=== PATIENT | female | born 1985 | race Caucasian/White ===

== ENCOUNTER 2019-02-12 20:47 | Inpatient (IN) | payer MEDICAID ==
[~2019-02-12] VITALS: Ht 160 cm; Wt 55.9 kg
[2019-02-12 20:50] VITALS: BP_SYST 132
--- NOTE | 2019-02-12 20:50 | NUR ---
Patient to ER bed 8 to gown for evaluation. Side rails up. Report given to Roni FREY.
--- NOTE | 2019-02-12 21:05 | NUR ---
Pt ambulates into ER with c/o abdominal pain. Pt states lower abdomen pain and describes pain as "lots of pressure." Pt states pain is 10/10. Pt states pain started approximately 1 week ago. Pt states urine frequency with no pain during urination. Pt states increased thirst and sleepiness. Pt states "I noticed this bump right here too." Upon assessment, pt presents with nodule in left upper leg. Will continue to monitor.
--- NOTE | 2019-02-12 21:05 | NUR ---
ER Dr. Shabazz at bedside examining patient.
[2019-02-12] MEDS ORDERED: NACL 0.9% 1,000 ML IV ONE ×2 (21:08→23:00)
[2019-02-12] MEDS ORDERED: KETOROLAC TROMETHAMINE 30 MG VIAL IVP ONE (21:15)
--- NOTE | 2019-02-12 21:50 | NUR ---
# 20 gauge angiocath placed to L Forearm. Use of asceptic technique. Opsite placed over site. Blood return noted. Blood for lab drawn from site. Flushed with 10 cc of normal saline. No evidence of infiltration noted. Patient tolerated well.
[2019-02-12 22:00] LABS: BASOPHILS % (AUTO) 0.3 % (0.0-2.0); EOSINOPHILS % (AUTO) 0.5 % (0.0-4.0); HEMATOCRIT 40.5 % (36-48); LYMPHOCYTES # (AUTO) 1.2 K/uL (1.0-5.5); LYMPHOCYTES % (AUTO) 15.7 % (20.5-51.5); MEAN CORPUSCULAR HEMOGLOBIN 28 pg (27-31); MEAN CORPUSCULAR HGB CONC 32 % (32-36); MEAN CORPUSCULAR VOLUME 88 fL (79.0-98.0); MONOCYTES # (AUTO) 0.6 K/uL (0.0-1.0); MONOCYTES % (AUTO) 7.3 % (1.7-9.3); NEUTROPHILS % (AUTO) 76.2 % (40.0-70.0); PLATELET COUNT (AUTO) 238 K/uL (130-430); RED BLOOD CELL COUNT(AUTO) 4.63 MIL/uL (4.2-6.2); RED CELL DISTRIBUTION WIDTH 14.1 % (9.0-15.0); WHITE BLOOD COUNT (AUTO) 7.9 K/uL (4.8-10.8)
[2019-02-12 22:20] LABS: BILIRUBIN,URINE NEGATIVE (NEGATIVE); BLOOD, URINE 1+ (NEGATIVE); CLARITY/URINE CLEAR (CLEAR); GLUCOSE,URINE 3+ (NEGATIVE); KETONES,URINE NEGATIVE (NEGATIVE); LEUKOCYTE ESTERASE ,URINE TRACE (NEGATIVE); NITRITE, URINE NEGATIVE (NEGATIVE); PROTEIN URINE NEGATIVE (NEGATIVE); UROBILINOGEN,URINE 0.2 (0.2-1.0)
[2019-02-12 22:26] LABS: COLOR,URINE STRAW (YELLOW)
[2019-02-12 22:34] LABS: BACTERIA,URINE FEW /HPF (None Seen); WBC,URINE 50-80 /HPF (0-3)
[2019-02-12 22:35] LABS: MUCUS,URINE None Seen /LPF (None Seen)
[2019-02-12 22:38] LABS: BARBITURATE, URINE NEGATIVE (NEG <=200); BENZODIAZEPINE, URINE NEGATIVE (NEG <=150); CANNABINOID, URINE POSITIVE (NEG <=50); COCAINE, URINE NEGATIVE (NEG <=150); METHAMPHETAMINES SCREEN,URINE POSITIVE (NEG <=500); OPIATE, URINE NEGATIVE (NEG <=100); PHENCYCLIDINE SCREEN,URINE NEGATIVE (NEG <=25); UR TRICYCLIC ANTIDEPRESSANTS NEGATIVE (NEG <=300); URINE AMPHETAMINE POSITIVE (NEG <=500); URINE METHADONE NEGATIVE (NEG <=200); URINE OXYCODONE SCREEN NEGATIVE (NEG <=100); URINE PROPOXYPHENE SCREEN NEGATIVE (NEG <=300)
[2019-02-12 22:58] LABS: ANION GAP 13 (5-15); CALCIUM 8.3 mg/dL (8.4-11.0); CREATININE 1.05 mg/dL (0.55-1.30); POTASSIUM 3.6 mmol/L (3.5-5.1); SODIUM SERUM 121 mmol/L (136-145); UREA NITROGEN, BLOOD 7 mg/dL (8-21)
[2019-02-12 22:59] LABS: ALANINE AMINOTRANSFERASE 24 U/L (12-78); ALBUMIN 3.1 g/dL (3.4-4.8); ASPARTATE AMINOTRANSFERASE 12 U/L (10-37); TOTAL BILIRUBIN 0.7 mg/dL (0.0-1.0)
[2019-02-12] MEDS ORDERED: INSULIN REGULAR, HUMAN 10 UNITS/0.1 ML INJ IVP ONE (23:00)
[2019-02-12 23:02] LABS: ACETONE, SERUM NEGATIVE (NEGATIVE)
[2019-02-12 23:03] LABS: CHLORIDE 81 mmol/L (98-107)
[2019-02-12 23:04] LABS: GLUCOSE 969 mg/dL (70-99)
--- NOTE | 2019-02-12 23:12 | NUR ---
Second bolus of normal saline started for pt. Pt tolerated well.
--- NOTE | 2019-02-12 23:30 | NUR ---
Dr. Hubbard here at bedside assessing patient.
[2019-02-12] MEDS ORDERED: INSULIN NPH 100 UNITS/ML 10 ML VIAL SUBCUT SCH (23:45)
[2019-02-13] MEDS ORDERED: NACL 0.9% 1,000 ML IV ONE
[2019-02-13] MEDS ORDERED: ACETAMINOPHEN 325 MG TABLET PO PRN
--- NOTE | 2019-02-13 01:32 | NUR ---
Transfer to Telemetry room 126B via ACLS protocol. Licensed nurse present. IV present no signs or symptoms of infiltration.
--- NOTE | 2019-02-13 01:32 | NUR ---
Patient will be admitted to [facility]. Admitted to Telemetry unit. Will go to room 126B. Belongings list completed. Complete and up to date summary report printed. SBAR report to be given at bedside with opportunity for questions.
--- NOTE | 2019-02-13 01:43 | NUR ---
ADMISSION NOTE Received patient from ER via gurney. Patient admitted with diagnosis of uncontrolled diabetes and methamphetamine abuse. Patient oriented to hospital room, call light, toileting, pain management and safety-teach back done. Patient informed that Fran will be her nurse and that their room number is 126B. Personal belongings checked and Belongings List documented. Call light within reach.
[2019-02-13 01:52] VITALS: BP_SYST 101
[2019-02-13] MEDS: cefTRIAXone 1 GM in D5W 50 ML IV SCH (02:26)
--- NOTE | 2019-02-13 02:26 | NUR ---
ACCUCHECK/IV ANTIBIOTICS/IV FLUIDS BS at 484 at this time, ordered insulin administered. MD to be notified. IVF and IV antibiotics hung at this time. Patient denies pain or discomfort at this time. Skin warm and dry to touch. Snacks provided. All needs met at this time. Call light with patient. Bed alarm on. Will continue to monitor.
[2019-02-13] MEDS: INSULIN LISPRO SLIDING SCALE 100 UNITS/ML VIAL (humaLOG) SUBCUT PRN ×5 (02:27→21:27)
[2019-02-13] MEDS ORDERED: cefTRIAXone 1 GM IVPB PREMIX 50 ML IV ONE (02:30)
[2019-02-13] MEDS: NACL 0.9% 1,000 ML IV SCH ×4 (04:07→11:30)
--- NOTE | 2019-02-13 04:30 | NUR ---
ROUNDS Patient in bed sleeping. No s/s of acute distress noted. Breathing even and unlabored. IVF infusing well. Call light with patient. Bed alarm on. Will continue to monitor.
[2019-02-13 06:20] LABS: ALBUMIN 2.1 g/dL (3.4-4.8); CALCIUM 7.4 mg/dL (8.4-11.0); CREATININE 0.56 mg/dL (0.55-1.30); TOTAL BILIRUBIN 0.2 mg/dL (0.0-1.0)
[2019-02-13] MEDS: INSULIN NPH 100 UNITS/ML 10 ML VIAL SUBCUT SCH ×2 (06:27→17:26)
--- NOTE | 2019-02-13 06:37 | NUR ---
CLOSING NOTES Patient in bed sleeping. No s/s acute distress noted. Breathing is even and unlabored. IVF infusing well. IV site patent, no signs of infiltration or infection noted. Skin warm and dry to touch. Last accucheck BS was 235. All needs met throughout the shift. Fall and safety precautions maintained throughout shift. Will continue to monitor until patient care is endorsed to oncoming dayshift nurse.
[2019-02-13 06:40] LABS: POTASSIUM 2.9 mmol/L (3.5-5.1)
[2019-02-13 06:46] LABS: BASOPHILS % (AUTO) 0.6 % (0.0-2.0); EOSINOPHILS # (AUTO) 0.1 K/uL (0.0-0.4); EOSINOPHILS % (AUTO) 1.6 % (0.0-4.0); HEMATOCRIT 32.5 % (36-48); LYMPHOCYTES # (AUTO) 1.4 K/uL (1.0-5.5); LYMPHOCYTES % (AUTO) 22.4 % (20.5-51.5); MEAN CORPUSCULAR HEMOGLOBIN 28 pg (27-31); MEAN CORPUSCULAR HGB CONC 34 % (32-36); MONOCYTES # (AUTO) 0.5 K/uL (0.0-1.0); MONOCYTES % (AUTO) 8.7 % (1.7-9.3); NEUTROPHILS # (AUTO) 4.2 K/uL (1.8-7.7); NEUTROPHILS % (AUTO) 66.7 % (40.0-70.0); PLATELET COUNT (AUTO) 181 K/uL (130-430); WHITE BLOOD COUNT (AUTO) 6.3 K/uL (4.8-10.8)
[2019-02-13] MEDS ORDERED: KCL 20 mEq in 100 mL (PREMIX) 200 ML IV ONE (07:00)
[2019-02-13] MEDS ORDERED: POTASSIUM CHLORIDE 40 MEQ in NS 250 ML IV ONE (07:15)
[2019-02-13 07:52] LABS: MEAN CORPUSCULAR VOLUME 84 fL (79.0-98.0)
[2019-02-13 08:02] VITALS: BP_SYST 127
--- NOTE | 2019-02-13 08:12 | NUR ---
am rounds: Patient is oriented x4. Still very sleepy. K-rider 40 meq in 250 NS started at 67 cc/hr. Safety precautions in place. Call light within reach.
[2019-02-13] MEDS ORDERED: CIPROFLOXACIN HCL 500 MG TABLET PO SCH (10:00)
--- NOTE | 2019-02-13 11:28 | NUR ---
SS NOTES: VENDING MANAGER was referred by nursing to see patient for DCPA and homelessness. Demographic information verified (PCP: None). VENDING MANAGER met with patient at bedside, stated purpose of visit. Pt was alert and oriented x4 (time, person, place, situation) with good eye contact. Pt is disheveled with normal mood and soft speech. Pt was cooperative during the interview. Pt is a 33 y/o single female who came in via ED due to frequent urination, uncontrolled DM and methamphetamine use. Pt states, "this past week I was urinating frequently" and initially, pt thought it was a urinary infection. Pt states she has always known that she is borderline diabetic, but was surprised to know the high glucose reading. Pt states the last time she visited or seen a physician was in 2011 at [facility]. Pt states she has been homeless for 7-8 years now. Pt is originally from [place] but moved to [facility] 3 years ago. Pt states she moved back to [place] in December 08 and has been staying at a dog park in [place]. Pt states she does not stay at homeless shelters due to "bad things happen there, people getting raped". Pt is independent with her ADL's and does not require any DME and does not own a glucometer. Pt states she has no source of income, gets food from food pantries and only receives emotional support from boyfriend. Pt states she is estranged from her family, including her 3 children. Pt states her oldest child lives with the father, and her two underage children lives with their grandfather (patient's father) who adopted them. Pt states she has not seen them for more than 7 years. Pt states she was involved with CPS after her admission at [facility] for attempted suicide via OD. Pt states she was diagnosed in 2012 with Schizophrenia, Bipolar and Bulimia. Pt denies suicide ideation and homicidal ideation currently. Pt states she has "meth issues" and she is trying to detox from it together with her boyfriend. Pt denies any history of detox treatments in the past. VENDING MANAGER provided pt with Homeless Assistance, [facility], [facility], [facility], [facility] facilities with helpline number, offered weather appropriate clothing (security notified), informed of food prior to d/c and homeless waiver on chart. When discharged, boyfriend will pick patient up. VENDING MANAGER will remain available for support and when needed. Addendum: 02/13/19 at 1516 by Bijan BURT JAVED provided the patient with diabetes support group and a copy of her [employer] card. VENDING MANAGER re-educated the patient of the importance of follow-up care and glucose check. JAVED encouraged the patient to participate on the diabetic teaching that is provided by the nurses; pt and halliefriennader agreed.
--- NOTE | 2019-02-13 11:30 | NUR ---
Diabetic teaching: Patient refused teachings/return demo with accuchek and insulin administration. Patient states " I will do it when I feel better." Addendum: 02/13/19 at 1333 by Gris Hill RN Amaris Ward Nurse is aware of Consult.
[2019-02-13 12:36] VITALS: BP_SYST 118
[2019-02-13] MEDS ORDERED: POTASSIUM CHLORIDE 20 MEQ TAB.PRT.SR PO ONE (14:30)
[2019-02-13] MEDS ORDERED: CIPROFLOXACIN HCL 500 MG TABLET PO ONE ×2 (14:45)
--- NOTE | 2019-02-13 15:00 | NUR ---
Rounds: Patient is resting in bed. Asked for Sugar free pudding.
[2019-02-13 16:30] VITALS: BP_SYST 112
--- NOTE | 2019-02-13 18:59 | NUR ---
END OF SHIFT: NEEDS ATTENDED. NO CHANGE IN ASSESSMENT.
--- NOTE | 2019-02-13 19:30 | NUR ---
initial notes: pt is resting, wake up and answer question. stable. no pain, not distress. vitals sign are with in normal limit.. iv lock left fore arm gauge 20 -intact and patent. explain plan of care. pt verbalized understanding. needs attended. call light in reach. safety on. will monitor.
[2019-02-13 21:13] VITALS: BP_SYST 131
[2019-02-13] MEDS: CIPROFLOXACIN HCL 500 MG TABLET PO SCH (21:21)
[2019-02-13] MEDS: POTASSIUM CHLORIDE 20 MEQ TAB.PRT.SR PO SCH (21:22)
--- NOTE | 2019-02-13 22:00 | NUR ---
pt refused to bedside blood sugar teach and demonstration. explain the important of checking ur own blood sugar. pt stated she is not ready.
--- NOTE | 2019-02-14 | NUR ---
sleeping, no pain, not distress. boyfriend at bedside. needs attended. will monitor.
[2019-02-14 00:40] VITALS: BP_SYST 122
[2019-02-14] MEDS: cefTRIAXone 1 GM in D5W 50 ML IV SCH (00:53)
--- NOTE | 2019-02-14 02:27 | NUR ---
sleeping. no pain. no distress, stable.call light in reach. will monitor.
--- NOTE | 2019-02-14 04:00 | NUR ---
sleeping on her side. stable. breathing ok. bryon monitor.
--- NOTE | 2019-02-14 06:00 | NUR ---
sleeping, comfortable. no sob. not distress. stable. will monitor.
[2019-02-14] MEDS: INSULIN NPH 100 UNITS/ML 10 ML VIAL SUBCUT SCH (06:45)
[2019-02-14] MEDS: INSULIN LISPRO SLIDING SCALE 100 UNITS/ML VIAL (humaLOG) SUBCUT PRN ×2 (06:47→11:29)
--- NOTE | 2019-02-14 07:15 | NUR ---
closing: sleeping, wakes up, no pain, stable, boyfriend at bedside. endorse care to am rn.
--- NOTE | 2019-02-14 07:20 | NUR ---
Opening Note Received bedside SBAR report from night order selector RN, patient in bed resting, no acute distress noted, respirations even and unlabored on room air, patients boyfriend at bedside, bed in low and locked position, call light in reach
[2019-02-14 08:00] VITALS: BP_SYST 112
[2019-02-14] MEDS: POTASSIUM CHLORIDE 20 MEQ TAB.PRT.SR PO SCH (08:58)
[2019-02-14] MEDS: CIPROFLOXACIN HCL 500 MG TABLET PO SCH (08:58)
--- NOTE | 2019-02-14 09:15 | NUR ---
RN Rounds Patient in bed resting, respirations even and unlabored on room air, patient denies any pain at this time
--- NOTE | 2019-02-14 11:20 | NUR ---
Diabetes Education Patient educated on purpose of diabetes management, patient educated on proper way to use glucometer including insertion of testing strip into machine, patient educated on importance on wiping finger tip with alcohol pad prior to checking blood sugar, educated patient on use of lancet, patient educated on importance of using only insulin syringes and disposing of used syringes after every use in a sharps container, patient educated on how to read blood glucose level and correspond with sliding scale per doctors orders, patient educated on how to draw up insulin with the correct dose, patient educated on self administration of insulin into subcutaneous tissue, patient returned demonstration and verbalized understanding of teaching and importance of checking blood sugar
[2019-02-14] MEDS ORDERED: CEPH-568 PO (12:11)
[2019-02-14] MEDS ORDERED: POTA20TA83 PO (12:12)
[2019-02-14] MEDS ORDERED: SSNPH SUBCUT (12:19)
[2019-02-14] MEDS ORDERED: INSU100V SUBCUT (12:19)
[2019-02-14 12:23] LABS: BASOPHILS % (AUTO) 0.3 % (0.0-2.0); EOSINOPHILS % (AUTO) 0.2 % (0.0-4.0); HEMATOCRIT 35.7 % (36-48); HEMOGLOBIN 11.9 g/dL (12.0-16.0); LYMPHOCYTES # (AUTO) 1.4 K/uL (1.0-5.5); LYMPHOCYTES % (AUTO) 17.1 % (20.5-51.5); MEAN CORPUSCULAR HEMOGLOBIN 28 pg (27-31); MEAN CORPUSCULAR HGB CONC 33 % (32-36); MEAN CORPUSCULAR VOLUME 84 fL (79.0-98.0); MONOCYTES # (AUTO) 0.5 K/uL (0.0-1.0); MONOCYTES % (AUTO) 5.5 % (1.7-9.3); NEUTROPHILS # (AUTO) 6.4 K/uL (1.8-7.7); NEUTROPHILS % (AUTO) 76.9 % (40.0-70.0); PLATELET COUNT (AUTO) 243 K/uL (130-430); RED BLOOD CELL COUNT(AUTO) 4.26 MIL/uL (4.2-6.2); RED CELL DISTRIBUTION WIDTH 14.1 % (9.0-15.0)
[2019-02-14 12:24] LABS: WHITE BLOOD COUNT (AUTO) 8.4 K/uL (4.8-10.8)
[2019-02-14 12:37] LABS: CALCIUM 8.1 mg/dL (8.4-11.0); CREATININE 0.68 mg/dL (0.55-1.30); POTASSIUM 3.9 mmol/L (3.5-5.1)
[2019-02-14 12:40] VITALS: BP_SYST 122
[2019-02-14 13:21] VITALS: BP_SYST 113
--- NOTE | 2019-02-14 14:00 | NUR ---
Shower Patient requesting to shower, patient provided hygiene items, patient completed hygiene and bathing independently
--- NOTE | 2019-02-14 14:30 | NUR ---
Discharge Provided patient with discharge packet and instructions, written prescriptions provided, patient verbalized understanding, IV catheter removed, catheter intact, no bleeding, provided patient with to-go meal, patient has weather appropriate clothing, all belongings sent with patient, patient accompanied by boyfriennader Rhodes for discharge, patient refusing wheel chair to parking lot, steady gait noted, no acute distress noted, patient ambulated to parking lot
== END 2019-02-14 14:30 | disposition home or self-care (01) | DRG 52 ==
LOC: SED 20:47 → STU 23:13 → SMU 02-14 14:23
PROVIDERS: ADMIT Internal Medicine; ATTEND Internal Medicine
DX: G92 Toxic encephalopathy (principal); E43 Unspecified severe protein-calorie malnutrition; E11.65 Type 2 diabetes mellitus with hyperglycemia; E87.6 Hypokalemia; F19.10 Other psychoactive substance abuse, uncomplicated; J42 Unspecified chronic bronchitis; F17.210 Nicotine dependence, cigarettes, uncomplicated; Z88.6 Allergy status to analgesic agent; E87.1 Hypo-osmolality and hyponatremia
CPT/HCPCS: 36415; 80048; 80053; 80061; 80307; 81000-TC; 82009-TC; 82962; 83036; 83735-TC; 84703; 85025; 87086; 87186-TC; 96374; 96375; 99285; G0378; J0696; J1815; J1885; J3480; J7030; J7050; J7060

== ENCOUNTER 2019-04-05 10:39 | Emergency (ER) | payer MEDICAID ==
[~2019-04-05] VITALS: Ht 160 cm; Wt 56.7 kg
[~2019-04-05 10:39] MED LIST: CEPH-568 PO; INSU100V SUBCUT; POTA20TA83 PO; SSNPH SUBCUT
[2019-04-05 10:40] VITALS: BP_SYST 89
[2019-04-05] MEDS: LIDOCAINE 1% 10 MG/ML, 20 ML MDV INJ ONE (11:44)
[2019-04-05] MEDS: HYDROcodone/ACETAMIN 5-325 MG TAB (NORCO/ VICODIN) PO ONE (12:17)
[2019-04-05 12:18] VITALS: BP_SYST 89
== END 2019-04-05 12:18 | disposition home or self-care (01) ==
LOC: SED 10:39
DX: L02.411 Cutaneous abscess of right axilla (principal); M27.2 Inflammatory conditions of jaws; E11.9 Type 2 diabetes mellitus without complications; F15.90 Other stimulant use, unspecified, uncomplicated; Z79.4 Long term (current) use of insulin; Z79.899 Other long term (current) drug therapy; Z88.5 Allergy status to narcotic agent
CPT/HCPCS: 10061; 99284; J2001